=== PATIENT | female | born 1970 | race Caucasian/White ===

== ENCOUNTER → 2022-02-22 | Outpatient (CLI) | payer BC | LOC: EXRD 01-19 10:00 → MAMO 01-19 10:00 → EXRD 01-19 10:30 → MAMO 14:00 → EXRD 15:00 | DX: Z12.31 Encounter for screening mammogram for malignant neoplasm of breast (principal); Z78.0 Asymptomatic menopausal state | CPT/HCPCS: 77063; 77067; 77080 ==